=== PATIENT | male | born 1955 | race Caucasian/White ===

== ENCOUNTER 2017-12-23 10:00 | Day surgery (SDC) | payer BC ==
[~2017-12-23] VITALS: Ht 185.4 cm; Wt 124.7 kg
[~2017-12-23 10:00] MED LIST: ASPIR-TRIN325 MG PO; HYDROCHLOROTHIA25 MG PO; LOVASTATIN20 MG PO; METOPROLOL SUCC50 MG PO; OMEPRAZOLE20 MG PO
--- NOTE | 2017-12-23 13:44 | NUR ---
12/23/17 1344 Trisha Smith 1335 PT ARRIVED TO PACU, REACTIVE. RESP EVEN AND UNLABORED, ON 6L VIA MASK. 1340 O2 MARGIE REMOVED. PT O2 SAT 100%. PT WOKE TO TACTILE STIMULI AND REORIENTED TO PACU. ICE TO LEFT LEG. PT DROWSY, DENIES PAIN AND NAUSEA.
--- NOTE | 2017-12-23 14:36 | NUR ---
ICED WATER, CRACKERS AND PUDDING GIVEN. CALL LIGHT W/IN REACH. SPOUSE @ BS.
[2017-12-23] MEDS ORDERED: ULTRAM50 MG PO (14:55)
[2017-12-23] MEDS ORDERED: NORCO 7.5-3251 EACH PO (14:55)
--- NOTE | 2017-12-23 15:31 | NUR ---
PT EATS CRACKERS AND PUDDING AND TOLERATES THAT WELL. MORE ICED WATER GIVEN.
--- NOTE | 2017-12-23 16:26 | NUR ---
PT SPOUSE ARRIVES WITH CRUTCHES AND IS AT BEDSIDE. PT OUT OF BED AND AMBULATES WITH CRUTCHES TO BR WITH RN ASSIST. PT VOIDS 350 MLS URINE WITH NO PROBLEMS. DC CRITERIA MET. PT STATES HE IS "A LITTLE BIT NAUSEATED" BUT DOES NOT WANT ANY ZOFRAN AT THIS TIME.
--- NOTE | 2017-12-28 07:19 | OR ---
[facility] [address], [place] [address] Signed DATE OF OPERATION: 12/23/2017 SURGEON: Teddy Evans MD PREOPERATIVE DIAGNOSIS: Achilles tendon rupture, left. POSTOPERATIVE DIAGNOSIS: Achilles tendon rupture, left. PROCEDURE: Achilles tendon repair with Arthrex PARS SpeedBridge. ANESTHESIA: General. SPECIMENS AND COMPLICATIONS: There were no specimens or complications. TOURNIQUET TIME: About 35 minutes. WHAT WAS DONE: The patient was taken to the operating room. After anesthesia was induced and airway secured, the patient was positioned, prepped and draped in a routine sterile fashion in the prone position. The leg was exsanguinated with an Esmarch bandage. Pneumatic tourniquet was inflated to 300 mmHg about the thigh. We then able to palpate the defect in the heel cord. We made a transverse incision about 3 cm long just about a centimeter distal to the distal portion of the proximal segment. Skin was divided sharply. Subcutaneous tissue was bluntly spread. We then split the paratenon and there was a moderate amount of hematoma that needed to be evacuated. We could then reach up inside the paratenon and I grabbed the distal stump of the proximal fragment. We then took the PARS jig and slid it up along the distal portion of the proximal segment inside the tendon sheath. Following the protocol, we passed the white FiberWire, blue FiberWire, FiberWire, and the striped FiberWire. We then pulled all of these down with the jig and delivered them out of the incision. We then used the looped FiberWire to lock the blue suture. These were then tightened. We then made two vertical incisions, one on the medial, one on the lateral aspect of the insertion of the heel cord into the calcaneus. Through this, we introduced the curved guide and delivered it into the rupture site. We then used to deliver one branch of the sutures medially and one branch Electronically Signed By: TEDDY EVNAS MD 12/28/17 0719 PATIENT NAME: EDMAR VELASQUEZ OPERATIVE REPORT DATE OF : 57 REPORT #: [id number] PHYSICIAN: TEDDY EVANS MD PCP: NUVIA ESTEBAN PAC REPORT IS CONFIDENTIAL AND NOT TO BE RELEASED WITHOUT AUTHORIZATION [facility] [address] [place], [place] [address] Signed laterally. We then worked all of the laxity out of the sutures. We then drilled two holes in the calcaneus and tapped and then secured the repair using two . This gave us a secure repair and restored the Russell test to normal. The wounds were gently irrigated and closed in a standard fashion. A sterile dressing and a splint were then applied. The patient was awakened and taken to recovery room where he arrived in stable condition. Counts were correct and antibiotic protocols were followed. MD AMMON Salas/EMILIEL /[id number] Copies: ~ Electronically Signed By: TEDDY EVANS MD 12/28/17 0719 PATIENT NAME: EDMAR VELASQUEZ OPERATIVE REPORT DATE OF : 57 REPORT #: [id number] PHYSICIAN: TEDDY EVANS MD PCP: NUVIA ESTEBAN PAC REPORT IS CONFIDENTIAL AND NOT TO BE RELEASED WITHOUT AUTHORIZATION
== END 2017-12-23 16:45 | disposition home or self-care (01) ==
LOC: DS 10:00 → OPS 10:00
PROVIDERS: Orthopaedic Surgery
PROC: 0LQP0ZZ Repair Left Lower Leg Tendon, Open Approach (ICD-10-PCS; principal; 2017-12-23 12:15)
DX: S86.012A Strain of left Achilles tendon, initial encounter (principal); I10 Essential (primary) hypertension; G47.30 Sleep apnea, unspecified; K21.9 Gastro-esophageal reflux disease without esophagitis; E78.00 Pure hypercholesterolemia, unspecified; Z79.82 Long term (current) use of aspirin; Z79.899 Other long term (current) drug therapy; X58.XXXA Exposure to other specified factors, initial encounter; Y93.64 Activity, baseball
CPT/HCPCS: 01472; 62322; 64445; 76942; C1713; J0330; J0690; J1100; J1885; J2250; J2405; J2704; J2765; J2795; J3010; J7120

== ENCOUNTER 2019-01-02 07:28 | Day surgery (SDC) | payer BC ==
[~2019-01-02] VITALS: Ht 185.4 cm; Wt 135.6 kg
[~2019-01-02 07:28] MED LIST changes: +NORCO 7.5-3251 EACH PO; +ULTRAM50 MG PO
[2019-01-02] MEDS ORDERED: LIPITOR20 MG GT (07:57)
--- NOTE | 2019-01-02 09:00 | NUR ---
01/02/19 0900 Jacquelin Muñoz 0850- PT TO PACU. DROWSY BUT ARROUSABLE TO VOICE. BREATHING EASY, UNLABORED, P902>95% ON RA. DENIES P/N/V. 0855- DR ANAYA TALKING WITH PATIENT AT BEDSIDE. 0900- PT SITTING UP, DRINKING WATER. DENIES P/N/V SPO2>95% ON RA.
--- NOTE | 2019-01-03 10:17 | OR ---
[facility] [address] [place], [place] [address] Signed DATE OF OPERATION: 01/02/2019 SURGEON: Natalee Anaya MD PREOPERATIVE DIAGNOSIS: Known diverticular changes, surveillance colonoscopy. POSTOPERATIVE DIAGNOSIS: Polyps x2 (70 cm and 18 cm). PROCEDURE PERFORMED: Total colonoscopy to cecum with snare polypectomy (cold) x1 and cold morcellation polypectomy x1. ANESTHESIA: Intravenous sedation, fentanyl 100 mcg, Versed 8 mg. INDICATION: This 63-year-old white man is a patient of Dr. Gema Hong and is referred for surveillance colonoscopy. He last underwent colonoscopy in 2006. At that time, mild proctitis was noted. He is admitted at this time to undergo surveillance colonoscopy, understands the risks of bleeding, infection, and perforation. He has no family history of colon cancer. FINDINGS: The prep was good. Complete colonoscopy was undertaken to the cecum without question. Identification of the appendiceal orifice was noted. He had two polyps, one at 70 cm, which was small and excised with cold morcellation technique and another somewhat larger sessile polyp, which was excised with cold snare technique without problem at 18 cm. There were few scattered diverticula, but it was not extensive. DESCRIPTION OF PROCEDURE: The patient was brought to the endoscopy suite and placed in lateral decubitus position, given intravenous sedation to the point of slurred speech and nystagmus. Digital rectal examination was performed. Full cardiopulmonary monitoring was maintained. The Olympus video colonoscope was passed in the rectum and manipulated throughout the colon, ultimately intubating the cecum itself. The ileocecal valve and appendiceal orifice were normal. Scope was withdrawn from that point and examination undertaken showed no sign of abnormality until approximately 70 cm from the anal verge where a Electronically Signed By: NATALEE ANAYA MD 01/03/19 1017 PATIENT NAME: EDMAR VELASQUEZ OPERATIVE REPORT DATE OF : 57 REPORT #: [id number] PHYSICIAN: NATALEE ANAYA MD PCP: GEMA HONG MD REPORT IS CONFIDENTIAL AND NOT TO BE RELEASED WITHOUT AUTHORIZATION [facility] [address] [place], [place] [address] Signed small sessile polyp was noted. This was excised with cold morcellation polypectomy technique. The scope was further withdrawn. A few scattered diverticula were noted. At 18 cm, was a somewhat villous-appearing larger but not large sessile polyp. This was excised with cold snare technique without problem. Specimen was passed to Pathology. The scope was further withdrawn. Retroflexed view of the rectum was undertaken showing no sign of abnormality. The scope was removed. The patient was taken to recovery room in good condition. CONCLUDING DIAGNOSIS: Polyps x2. PLAN: Recommend repeat colonoscopy in 5 years sooner if clinically indicated. He will return to the ongoing care of Dr. Hong otherwise. MD ERNST Fraser/TOYA /[id number] cc: Gema Hong MD Copies: ~ Electronically Signed By: NATALEE ANAYA MD 06/18/19 1017 PATIENT NAME: EVAEDMAR JEROME OPERATIVE REPORT DATE OF : 57 REPORT #: [id number] PHYSICIAN: NATALEE ANAYA MD PCP: GEMA HONG MD REPORT IS CONFIDENTIAL AND NOT TO BE RELEASED WITHOUT AUTHORIZATION
== END 2019-01-02 09:25 | disposition home or self-care (01) ==
LOC: OPS 07:28 → DS 07:28 → OPS 09:25 → DS 01-03 13:00 → OPS 01-03 13:00
PROVIDERS: Surgery
PROC: 0DBE8ZZ Excision of Large Intestine, Via Natural or Artificial Opening Endoscopic (ICD-10-PCS; principal; 2019-01-02 08:30)
DX: Z12.11 Encounter for screening for malignant neoplasm of colon (principal); D12.6 Benign neoplasm of colon, unspecified; K57.30 Diverticulosis of large intestine without perforation or abscess without bleeding; E03.9 Hypothyroidism, unspecified; G47.33 Obstructive sleep apnea (adult) (pediatric); I10 Essential (primary) hypertension; I51.9 Heart disease, unspecified; E66.01 Morbid (severe) obesity due to excess calories; Z68.39 Body mass index [BMI] 39.0-39.9, adult; Z98.890 Other specified postprocedural states
CPT/HCPCS: 99153; G0500; J2250; J3010

== ENCOUNTER 2020-04-13 21:12 | Emergency (ER) | payer BC ==
[~2020-04-13] VITALS: Ht 182.9 cm; Wt 135.6 kg
[~2020-04-13 21:12] MED LIST changes: -ASPIR-TRIN325 MG PO; +ASPIRIN EC81 MG PO; +FUROSEMIDE40 MG PO; +GABAPENTIN100 MG PO; +LEVOTHYROXINE50 MCG PO; +LIPITOR20 MG PO; +METOPROLOL SUCC25 MG PO; +POTASSIUM CHLO20 ME1 PO; +WARFARIN SODIUM5 MG PO
[2020-04-13] MEDS ORDERED: TRANSDERM-SCOP1 EACH TD (22:37)
[2020-04-13] MEDS ORDERED: POTASSIUM CHLO10 MEQ PO (22:37)
--- NOTE | 2020-04-14 12:47 | EKG ---
[facility] [address] [place] [facility] [place] [address] Signed Normal sinus rhythm Incomplete right bundle branch block Prolonged QT Abnormal ECG When compared with ECG of 22-DEC-2017 11:41, No significant change was found Confirmed by TIARA FRAUSTO MD ([id number]) on 04/14/2020 12:47:20 PM Electronically Signed By: TIARA FRAUSTO MD 04/14/20 1247 PATIENT NAME: EVAEDMAR Electrocardiogram DATE OF : 57 PHYSICIAN: TIARA FRAUSTO MD REPORT #: [id number] REPORT IS CONFIDENTIAL AND NOT TO BE RELEASED WITHOUT AUTHORIZATION
== END 2020-04-13 22:45 | disposition home or self-care (01) ==
LOC: ED 21:12
DX: E87.6 Hypokalemia (principal); I10 Essential (primary) hypertension; Z79.899 Other long term (current) drug therapy; Z79.82 Long term (current) use of aspirin; Z79.01 Long term (current) use of anticoagulants
CPT/HCPCS: 70450; 71045; 80053; 81001; 84484; 85025; 85610; 85730; 93005; 93010; 99285-25; G0480

== ENCOUNTER 2022-01-30 09:55 | Day surgery (SDC) | payer MEDICARE, OTHER ==
[~2022-01-30] VITALS: Ht 368.3 cm; Wt 122.7 kg
[~2022-01-30 09:55] MED LIST changes: +ATORVASTATIN CA20 MG PO; +FAMOTIDINE40 MG PO; +LOVENOX40 MG/0.4; +PEPCID AC20 MG PO; +POTASSIUM CHLO10 MEQ PO; +SILDENAFIL20 MG PO; +TRANSDERM-SCOP1 EACH TD; +WARFARIN SODIUM4 MG PO
--- NOTE | 2022-01-30 12:59 | NUR ---
01/30/22 Cristine Parker- PT ARRIVES TO PACU REACTIVE TO VERBAL STIMULI. RESP EVEN AND UNLABORED. OXYGEN SAT HIGH 90'S ON 8L VIA MASK. PT REPORTS NO PAIN OR NAUSEA. FALLS INSTANTLY BACK TO SLEEP WHEN NOT BEING TALKED TO.
--- NOTE | 2022-01-31 12:17 | OR ---
[facility] [address] [place], [place] [address] Signed DATE OF OPERATION: 01/30/2022 SURGEON: Natalee Anaya MD PREOPERATIVE DIAGNOSES: 1. 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 2. History of aortic valve replacement and chronic anticoagulation (Coumadin). POSTOPERATIVE DIAGNOSIS: Small polyp, left transverse colon (excised). PROCEDURE: Total colonoscopy to cecum with cold morcellation polypectomy x1. ANESTHESIA: Intravenous sedation, propofol infusion; Harpal Weathers CRNA. MEDICATIONS: Preoperative ampicillin and gentamicin. INDICATIONS: This 66-year-old white man is a patient of Dr. Barrera and underwent colonoscopy by me in 2019, at which time he was found to have a serrated adenoma at 18 cm and a tubular adenoma at 80 cm. In the meantime, he has undergone aortic valve replacement. He is on chronic anticoagulation with Coumadin. He is here for surveillance colonoscopy, understand the risks of bleeding, infection, and perforation. FINDINGS: Prep was good. Complete colonoscopy was undertaken to the cecum without question. A small adenomatous polyp at the left transverse colon, which was excised with cold morcellation technique. The remaining colon was normal. DESCRIPTION OF PROCEDURE: The patient was brought to the endoscopy suite, placed in lateral decubitus position. He has been abstinent of Coumadin for four days and has been on bridge therapy with Lovenox. Additionally, preoperative antibiotic, ampicillin and gentamicin have been given based on his aortic valve replacement. He was given intravenous sedation under full cardiopulmonary monitoring with propofol infusional technique. Digital rectal examination was found to be normal. Electronically Signed By: NATALEE ANAYA MD 01/31/22 1217 PATIENT NAME: EDMAR VELASQUEZ OPERATIVE REPORT DATE OF : 57 REPORT #: [id number] PHYSICIAN: NATALEE ANAYA MD PCP: KEYSHAWN BARRERA MD REPORT IS CONFIDENTIAL AND NOT TO BE RELEASED WITHOUT AUTHORIZATION [facility] [address] [place], [place] [address] Signed An Olympus video colonoscope was passed into the rectum and manipulated throughout the colon, ultimately intubating the cecum itself. The ileocecal valve and appendiceal orifice were normal. The scope was withdrawn, examination throughout showed no sign of abnormality into the left transverse colon, where a small adenomatous polyp was noted, this was excised completely with cold morcellation technique. The polyp was certainly less than 5 mm. The scope was further withdrawn. Remaining colon was normal. Retroflexed view was normal as well. The scope was removed. The patient was taken to the recovery room in good condition. CONCLUDING DIAGNOSIS: Polyps x1 excised. PLAN: Recommend repeat colonoscopy in 5 years or sooner if clinically indicated. He will continue with his bridge therapy of Lovenox and restart Coumadin today. He will return to the ongoing care of Dr. Barrera. MD ERNST Fraser/TOYA /[id number] cc: Keyshawn Barrera MD Copies: KEYSHAWN BARRERA MD ~ Electronically Signed By: NATALEE ANAYA MD 01/31/22 1217 PATIENT NAME: EVAEDMARCAN NUNES OPERATIVE REPORT DATE OF : 57 REPORT #: [id number] PHYSICIAN: NATALEE ANAYA MD PCP: KEYSHAWN BARRERA MD REPORT IS CONFIDENTIAL AND NOT TO BE RELEASED WITHOUT AUTHORIZATION
--- NOTE | 2022-02-02 14:45 | PATH ---
[facility] [address] [place], [place] [address] Signed SPECIMEN(S): A TRANSVERSE COLON POLYP SPECIMEN SOURCE: A. TRANSVERSE COLON POLYP CLINICAL HISTORY: Colonoscopy. History of polyps and diverticulosis. Postoperative Diagnosis: Polyp x 1. FINAL PATHOLOGIC DIAGNOSIS: Colon, transverse, polyp, polypectomy: - Tubular adenoma. - Negative for high-grade dysplasia or malignancy. NAL:cml:C2NR MICROSCOPIC EXAMINATION: Histologic sections of all submitted blocks are examined by light microscopy. These findings, together with the gross examination, support the pathologic diagnosis. GROSS DESCRIPTION: The specimen, labeled "TG, 1," and designated on the requisition "transverse polypectomy," is received in formalin and consists of one fragment of pink-daley tissue (0.4 cm in greatest dimension). The specimen is submitted entirely in cassette (A1). AC (under the direct supervision of a pathologist) The Gross Description was prepared using a voice recognition system. The report was reviewed for accuracy; however, sound-alike word errors, addition and/or deletions may occur. If there is any question about this report, please contact Client Services. PERFORMING LABORATORY: The technical component was performed by [facility], [address] [place] [id number] (CLIA# [id number]). [facility], [address] [address] (CLIA# [id number]). Diagnostician: Ann Marie Rojo MD Pathologist Electronically Signed 02/02/2022 PATIENT NAME: EDMAR VELASQUEZ PATHOLOGY DATE OF : 57 REPORT #: [id number] PHYSICIAN: JERICHO PATHOLOGY PCP: JT RODRIGUEZ MD REPORT IS CONFIDENTIAL AND NOT TO BE RELEASED WITHOUT AUTHORIZATION [address] [place], [place] [address] Signed Copies: ~ PATIENT NAME: EDMAR VELASQUEZ PATHOLOGY DATE OF : 57 REPORT #: [id number] PHYSICIAN: JERICHO PATHOLOGY PCP: JT RODRIGUEZ MD REPORT IS CONFIDENTIAL AND NOT TO BE RELEASED WITHOUT AUTHORIZATION
== END 2022-01-30 13:30 | disposition home or self-care (01) ==
LOC: OPS 09:55 → DS 09:55 → OPS 11:30 → DS 11:35 → OPS 11:35 → DS 11:45 → OPS 13:30
PROVIDERS: ATTEND Surgery
PROC: 0DBL8ZX Excision of Transverse Colon, Via Natural or Artificial Opening Endoscopic, Diagnostic (ICD-10-PCS; principal; 2022-01-30 11:30)
DX: Z12.11 Encounter for screening for malignant neoplasm of colon (principal); D12.3 Benign neoplasm of transverse colon; E03.9 Hypothyroidism, unspecified; I10 Essential (primary) hypertension; K57.30 Diverticulosis of large intestine without perforation or abscess without bleeding; G47.33 Obstructive sleep apnea (adult) (pediatric); Z87.19 Personal history of other diseases of the digestive system; Z79.01 Long term (current) use of anticoagulants; Z95.2 Presence of prosthetic heart valve
CPT/HCPCS: J1580; J2001; J2250; J2704; J7121